=== PATIENT | female | born 1960 | race Two or more races ===

== ENCOUNTER 2017-07-19 13:38 | Inpatient (IN) | payer OTHER ==
[2017-07-19 13:43] VITALS: BMI 28.9
--- NOTE | 2017-07-19 15:07 | PDOC ---
History of Present Illness <Pedro Fariaa - Last Filed: 07/19/17 18:42> - General History Source: Patient Exam Limitations: Language Barrier - History of Present Illness Initial Comments: 07/19/17 15:03 56F with pmh of [place] 10 years ago presents with upper right quadrant pain , fever, and headach and pain with breathing since last night. Pain in worse with food. 1 episode of vomiting last night. Had similar episode last month that went away by itself. Patient denies diarrhea, dysuria, lower wquadrant pain, <OsmarMandeep - Last Filed: 07/19/17 19:57> - General Chief Complaint: Pain Stated Complaint: FEVER, ABD PAIN Past History <Megan Faria - Last Filed: 07/19/17 18:42> - Past Medical History COPD: No - Suicide/Smoking/Psychosocial Hx Smoking History: Never smoked Hx Alcohol Use: No Drug/Substance Use Hx: No <OsmarMandeep - Last Filed: 07/19/17 19:57> - Past Medical History Allergies/Adverse Reactions: Allergies Allergy/AdvReac Type Severity Reaction Status Date / Time No Known Allergies Allergy Verified 07/19/17 13:43 Review of Systems - Review of Systems Able to Perform ROS?: Yes Is the patient limited Syrian proficient: Yes Constitutional: Yes: Chills, Fever, Loss of Appetite, Weakness HEENTM: No: Symptoms Reported Respiratory: Yes: Shortness of Breath (due to pain) Cardiac (ROS): Yes: Palpitations ABD/GI: Yes: Symptoms Reported, Nausea, Vomiting. No: Abd. Pain w/ defecation, Blood Streaked Bowels, Constipated, Diarrhea : No: Symptoms Reported Musculoskeletal: No: Symptoms Reported <PrasadMandeep - Last Filed: 07/19/17 19:57> *Physical Exam - Vital Signs Last Vital Signs Temp Pulse Resp BP Pulse Ox 99.5 F 130 H 20 160/77 97 07/19/17 13:40 07/19/17 13:40 07/19/17 13:40 07/19/17 13:40 07/19/17 13:40 <Megan Faria - Last Filed: 07/19/17 18:42> - Vital Signs Last Vital Signs Temp Pulse Resp BP Pulse Ox 99.5 F 130 H 20 160/77 97 07/19/17 13:40 07/19/17 13:40 07/19/17 13:40 07/19/17 13:40 07/19/17 13:40 - Physical Exam General Appearance: Yes: Nourished, Appropriately Dressed, Moderate Distress HEENT: positive: EOMI, CARYL, Normal ENT Inspection Neck: negative: Tender Respiratory/Chest: positive: Lungs Clear, Normal Breath Sounds. negative: Chest Tender Cardiovascular: positive: Regular Rhythm Gastrointestinal/Abdominal: positive: Tenderness, Other (Positive Perez's sign) . negative: Tender Integumentary: positive: Warm, Diaphoresis Neurologic: positive: Fully Oriented, Alert, Normal Mood/Affect <Mandeep Prasad - Last Filed: 07/19/17 19:57> ED Treatment Course - LABORATORY CBC & Chemistry Diagram: 07/19/17 15:25 07/19/17 15:25 - ADDITIONAL ORDERS Additional order review: Laboratory Results 07/19/17 07/19/17 15:25 15:25 Sodium 138 Potassium 4.3 Chloride 102 Carbon Dioxide 30 Anion Gap 6 L BUN 12 Creatinine 0.8 Creat Clearance w eGFR > 60 Random Glucose 106 Calcium 10.5 H Total Bilirubin 1.8 H Direct Bilirubin 0.6 H AST 247 H ALT 243 H Alkaline Phosphatase 92 Total Protein 7.8 Albumin 3.8 Lipase 80 07/19/17 15:25 RBC 4.95 MCV 93.0 MCHC 34.0 RDW 13.5 MPV 8.8 Neutrophils % 84.2 H Lymphocytes % 7.5 L Monocytes % 7.7 Eosinophils % 0.1 Basophils % 0.5 - Medications Given in the ED: ED Medications Discontinued Medications Generic Name Dose Route Start Last Admin Trade Name Freq PRN Reason Stop Dose Admin Ketorolac Tromethamine 30 mg 07/19/17 15:08 07/19/17 15:37 Toradol Injection - IVPUSH 07/19/17 15:09 30 mg ONCE ONE Administration Ondansetron HCl 4 mg 07/19/17 15:56 07/19/17 16:53 Zofran Injection IVPUSH 07/19/17 15:57 4 mg ONCE ONE Administration Sodium Chloride 1,000 ml 07/19/17 15:17 07/19/17 16:53 Normal Saline - IV 07/19/17 15:18 1,000 ml ONCE ONE Administration <Megan Faria - Last Filed: 07/19/17 18:42> - LABORATORY CBC & Chemistry Diagram: 07/19/17 15:25 07/19/17 15:25 <Mandeep Prasad - Last Filed: 07/19/17 19:57> Medical Decision Making - Medical Decision Making 07/19/17 17:10 56F presenting with fever, RUQ pain. High suspicion for cholecystitis.cholelithiasis cbc/cmp/bili/Bedside ultrasound positive for Gallstones. Patient admitted for acute calculous cholecystitis. Evaluation by Dr. Parham and admission. 07/19/17 19:57 <Mandeep Prasad - Last Filed: 07/19/17 19:57> *DC/Admit/Observation/Transfer - Discharge Dispostion Admit: Yes <Megan Faria - Last Filed: 07/19/17 18:42> <Mandeep Prasad - Last Filed: 07/19/17 19:57> Diagnosis at time of Disposition: Cholecystitis - Referrals
[2017-07-19] MEDS ORDERED: KETOROLAC TROMETHAMINE 30 MG/1 ML VIAL IVPUSH ONE (15:08)
[2017-07-19] MEDS ORDERED: SODIUM CHLORIDE 0.9% 1000 ML INFUS.BAG IV ONE (15:17)
[2017-07-19] MEDS ORDERED: KETOROLAC TROMETHAMINE 30 MG/1 ML VIAL ONE (15:32)
[2017-07-19] MEDS ORDERED: ONDANSETRON 4 MG/2 ML VIAL IVPUSH ONE (15:56)
--- NOTE | 2017-07-19 15:56 | PDOC ---
Attending Attestation - Resident Resident Name: Mandeep Prasad - ED Attending Attestation I have performed the following: I have examined & evaluated the patient, The case was reviewed & discussed with the resident, I agree w/resident's findings & plan, Exceptions are as noted - HPI HPI: 07/19/17 15:51 56 yo F with ruq epigastric pain , n/v and subjective fevers. h/o gallstones. no mod factors. last meal was last pm. no cp no sob. no other complaints. no urinary complaints - Physicial Exam PE: 07/19/17 15:53 awake alert lungs clear bilat. heart rrr no mrg. abd soft ruq ttp, epigastric ttp. no rebound. pos murhpy's. ext wwp nt. skin warm and dry nuero alert oriented x 3. - Medical Decision Making 07/19/17 15:55 differential cholecystitis, gastritis, cholelithiaiss pancreatitis. plan us labs lipase pain control antiemetics. surgery consults. <Megan Faria - Last Filed: 07/19/17 15:51> - Medical Decision Making 07/19/17 18:02 Dr. Parham paged via phone answering service. Awaiting call back 07/19/17 18:[address] Parham in the ED Prasad aware of case before page <Radha Montero - Last Filed: 07/19/17 18:34>
[2017-07-19] MEDS ORDERED: SODIUM CHLORIDE 1,000 ML IV SCH (16:00)
[2017-07-19 16:30] LABS: BASOPHIL 0.5 % (0-2.0); EOSINOPHIL 0.1 % (0-4.5); MCH 31.6 pg (25.7-33.7); MEAN PLT VOLUME 8.8 fl (7.5-11.1); NEUTROPHILS 84.2 % (42.8-82.8); PLATELET COUNT 235 K/MM3 (134-434); RDW 13.5 % (11.6-15.6)
[2017-07-19] MEDS ORDERED: ONDANSETRON 4 MG/2 ML VIAL ONE (16:47)
[2017-07-19 16:55] LABS: ALBUMIN 3.8 g/dl (3.4-5.0); ALK PHOS 92 U/L (45-117); ANION GAP 6 (8-16); BILIRUBIN,DIRECT 0.6 mg/dL (0.0-0.2); BILIRUBIN,TOTAL 1.8 mg/dL (0.2-1.0); CALCIUM 10.5 mg/dL (8.5-10.1); CO2 30 mmol/L (21-32); CREATININE 0.8 mg/dL (0.55-1.02); GLUCOSE,RANDOM 106 mg/dL (74-106); SGPT/ALT 243 U/L (12-78); TOT PROT 7.8 g/dl (6.4-8.2)
[2017-07-19 17:11] LABS: SGOT/AST 247 U/L (15-37)
[2017-07-19] MEDS ORDERED: PIPERACIL/TAZOB 3.375 GM 3.375 GM/50 ML PREMIX IVPB ONE (17:59)
[2017-07-19] MEDS ORDERED: SODIUM CHLORIDE 1,000 ML IV STA (18:01)
[2017-07-19] MEDS ORDERED: PIPERACILLIN/TAZOB 4.5 GM/100 ML PRE-DOCKED IVPB ONE (18:40)
[2017-07-19] MEDS ORDERED: PIPERACILLIN/TAZOB 4.5 GM 100 ML IVPB ONE (18:53)
[2017-07-19 19:07] LABS: INR 1.13 (0.82-1.09); PROTHROMBIN TIME (PATIENT) 12.8 SEC (9.98-11.88)
[2017-07-19 19:10] LABS: ACTIVATED PTT 29.4 SECONDS (26.9-34.4)
[2017-07-19] MEDS ORDERED: morphine CARPU-JECT 2 MG/1 ML DISP.SYRIN IVPUSH PRN (20:45)
[2017-07-19] MEDS ORDERED: ONDANSETRON 4 MG/2 ML VIAL IVPUSH PRN (20:48)
--- NOTE | 2017-07-19 20:58 | HP ---
Admitting History and Physical - Admission Chief Complaint: RUQ pain, n/v, f/c History of Present Illness: 56yo Micheal F with HTN not requiring meds, h/o kidney stones, abdominoplasty and breast surgery, has been having intermittent RUQ pain after fatty meals for last two months. She thought it was acid problems, but it keeps coming back. This episode has been the worst so far, associated since yesterday with F/C, N/V , no change in bowel habits, last BM yesterday. She came to ER, where wbc is 12 , H/H 15/46 concentrated, LFTs slightly elevated but lipase normal; US showed gallstones with thickened gallbladder wall, no pericholecystic fluid, cbd 7-8mm , + Perez's. Pt states pain is better now after Toradol. She did have a reaction to Zosyn in ER with facial swelling and erythema, hives on arms, abd and legs. Got benadryl with improvement in itching and decrease in symptoms. Got 2L IVF in ER and started on maintenance. History Source: Patient, Family Member Limitations to Obtaining History: Language Barrier (Yemeni interpretation by daughters at bedside at pt's request) - Past Medical History Cardiovascular: Yes: HTN (not on meds) Gastrointestinal: Yes: GERD Hepatobiliary: Yes: Cholelithiasis Renal/: Yes: Renal Calculi ...: No Musculoskeletal: Yes: Chronic low back pain - Past Surgical History Past Surgical History: Yes: Upper Endoscopy (negative per pt, few months ago) Additional Past Surgical History: abdominoplasty, breast surgery, cystoscopy for kidney stones - Smoking History Smoking history: Former smoker (1ppd x 10 yrs) Have you smoked in the past 12 months: No If you are a former smoker, when did you quit?: 20 yrs ago - Alcohol/Substance Use Hx Alcohol Use: Yes (social) History of Substance Use: reports: None - Social History ADL: Independent Home Medications - Allergies Allergies/Adverse Reactions: Allergies Allergy/AdvReac Type Severity Reaction Status Date / Time piperacillin sodium Allergy Severe Hives Verified 07/19/17 21:01 [From Zosyn] tazobactam sodium Allergy Severe Hives Verified 07/19/17 21:01 [From Zosyn] - Home Medications Home Medications: Ambulatory Orders NK [No Known Home Medication] 07/19/17 Family Disease History - Family Disease History Family History: Unremarkable Review of Systems - Review of Systems Constitutional: reports: Chills, Fever Eyes: reports: Other (uses reading glasses). denies: Blurred Vision, Double Vision HENT: denies: Difficult Swallowing, Throat Pain Neck: denies: Swollen Glands, Tenderness Cardiovascular: denies: Chest Pain, Palpitations Respiratory: denies: Cough, SOB Gastrointestinal: reports: Abdominal Pain (with hpi), Indigestion (sometimes), Nausea (with hpi), Vomiting (with hpi). denies: Constipation, Diarrhea Genitourinary: denies: Burning, Dysuria Musculoskeletal: reports: Back Pain (since kidney stones). denies: Joint Pain Integumentary: denies: Change in Color, Rash Neurological: reports: Dizziness (with hpi), Headache (with hpi) Psychiatric: denies: Anxiety, Depression Physical Examination Vital Signs: Vital Signs Temperature 99 F 07/19/17 20:03 Pulse Rate 86 07/19/17 20:03 Respiratory Rate 18 07/19/17 20:03 Blood Pressure 131/69 07/19/17 20:03 O2 Sat by Pulse Oximetry (%) 97 07/19/17 20:03 Constitutional: Yes: Well Nourished, No Distress, Calm Eyes: Yes: Conjunctiva Clear, EOM Intact. No: Sclera Icterus HENT: Yes: Atraumatic, Normocephalic Neck: Yes: Supple, Trachea Midline Cardiovascular: Yes: Regular Rate and Rhythm, Murmur (soft systolic) Respiratory: Yes: Regular, CTA Bilaterally Gastrointestinal: Yes: Normal Bowel Sounds, Soft, Tenderness (mild LUQ, no r/g) , Other (well healed pfannenstiel/abdominoplasty scar and periumbilical scar). No: Distention, Tenderness, Epigastrium ...Rectal Exam: Yes: Deferred Renal/: No: CVA Tenderness - Left, CVA Tenderness - Right Musculoskeletal: No: Joint Stiffness, Joint Swelling Extremities: No: Cool, Cyanosis Edema: No Peripheral Pulses WNL: Yes Integumentary: Yes: Tattoos. No: Jaundice Neurological: Yes: Alert, Oriented Psychiatric: Yes: Alert, Oriented Labs: CBCD WBC 12.0 K/mm3 (4.0-10.0) H 07/19/17 15:25 RBC 4.95 M/mm3 (3.60-5.2) 07/19/17 15:25 Hgb 15.6 GM/dL (10.7-15.3) H 07/19/17 15:25 Hct 46.0 % (32.4-45.2) H 07/19/17 15:25 MCV 93.0 fl (80-96) 07/19/17 15:25 MCHC 34.0 g/dl (32.0-36.0) 07/19/17 15:25 RDW 13.5 % (11.6-15.6) 07/19/17 15:25 Plt Count 235 K/MM3 (134-434) 07/19/17 15:25 MPV 8.8 fl (7.5-11.1) 07/19/17 15:25 CMP Sodium 138 mmol/L (136-145) 07/19/17 15:25 Potassium 4.3 mmol/L (3.5-5.1) 07/19/17 15:25 Chloride 102 mmol/L (98-107) 07/19/17 15:25 Carbon Dioxide 30 mmol/L (21-32) 07/19/17 15:25 Anion Gap 6 (8-16) L 07/19/17 15:25 BUN 12 mg/dL (7-18) 07/19/17 15:25 Creatinine 0.8 mg/dL (0.55-1.02) 07/19/17 15:25 Creat Clearance w eGFR > 60 (>60) 07/19/17 15:25 Calcium 10.5 mg/dL (8.5-10.1) H 07/19/17 15:25 Total Bilirubin 1.8 mg/dL (0.2-1.0) H 07/19/17 15:25 AST 247 U/L (15-37) H 07/19/17 15:25 ALT 243 U/L (12-78) H 07/19/17 15:25 Alkaline Phosphatase 92 U/L (45-117) 07/19/17 15:25 Total Protein 7.8 g/dl (6.4-8.2) 07/19/17 15:25 Albumin 3.8 g/dl (3.4-5.0) 07/19/17 15:25 lipase 80 INR, PTT INR 1.13 (0.82-1.09) 07/19/17 18:45 Imaging - Results Ultrasound: Report Reviewed, Image Reviewed Problem List - Problems (1) Calculus of gallbladder with acute cholecystitis without obstruction Assessment/Plan: admit to surgery NPO/IVF until after surgery had acute reaction to zosyn with hives and facial swelling - aztreonam/flagyl per ID pain meds prn DVT prophylaxis Discussed with patient risks, benefits and alternatives of laparoscopic possible open cholecystectomy, including but not limited to bleeding, infection , injury to adjacent structures, bile leak or ductal injury, intraabdominal abscess or fluid collection, hernia, need for further procedures; alternatives include antibiotics, delayed or no surgery - risks of this include failure of nonoperative therapy, recurrence, cholangitis, pancreatitis, sepsis. Patient desires to proceed with operation - will plan for OR tomorrow if am labs are ok. Informed consent signed for same. Patient is expected to spend at least two midnights in the hospital. Code(s): K80.00 - CALCULUS OF GALLBLADDER W ACUTE CHOLECYST W/O OBSTRUCTION (2) Hypertension Assessment/Plan: no meds at home Code(s): I10 - ESSENTIAL (PRIMARY) HYPERTENSION Qualifiers: Hypertension type: essential hypertension Qualified Code(s): I10 - Essential (primary) hypertension; I10 - Essential (primary) hypertension; I10 - Essential (primary) hypertension (3) H/O renal calculi Code(s): Z87.442 - PERSONAL HISTORY OF URINARY CALCULI
[2017-07-19] MEDS: LACTATED RINGERS SOLUTION 1,000 ML IV SCH (21:32)
[2017-07-20] MEDS ORDERED: AZTREONAM 1 GM in DEXTROSE 5%-WATER - 50 ML IVPB SCH (02:00)
[2017-07-20] MEDS: METRONIDAZOLE 500 MG PREMIXED 100 ML IVPB SCH ×3 (02:30→18:47)
[2017-07-20] MEDS: AZTREONAM 1 GM IVPUSH SCH ×3 (02:31→18:53)
[2017-07-20 04:28] LABS: URINE APPEARANCE CLEAR; URINE BILIRUBIN NEGATIVE (NEGATIVE); URINE BLOOD 1+ (NEGATIVE); URINE COLOR YELLOW; URINE GLUCOSE (UA) NEGATIVE (NEGATIVE); URINE KETONE NEGATIVE (NEGATIVE); URINE NITRITE NEGATIVE (NEGATIVE); URINE PROTEIN NEGATIVE (NEGATIVE); URINE UROBILINOGEN 4.0 E.U/dl mg/dL (0.2-1.0)
[2017-07-20 04:37] LABS: URINE MUCUS RARE; URINE RBC 7 /hpf (0-3); URINE WBC 1 /hpf (3-5)
[2017-07-20] MEDS: LACTATED RINGERS SOLUTION 1,000 ML IV SCH ×2 (06:25→18:54)
[2017-07-20 08:26] LABS: BASOPHIL 0.5 % (0-2.0); EOSINOPHIL 2.3 % (0-4.5); MCH 31.2 pg (25.7-33.7); MCHC 33.5 g/dl (32.0-36.0); MEAN CELL VOLUME 93.1 fl (80-96); MEAN PLT VOLUME 8.1 fl (7.5-11.1); NEUTROPHILS 69.6 % (42.8-82.8); PLATELET COUNT 185 K/MM3 (134-434); RDW 13.2 % (11.6-15.6); WHITE BLOOD COUNT 5.5 K/mm3 (4.0-10.0)
[2017-07-20 09:11] LABS: GLUCOSE,RANDOM 87 mg/dL (74-106); SGOT/AST 153 U/L (15-37); SGPT/ALT 217 U/L (12-78)
[2017-07-20 09:14] LABS: ALK PHOS 77 U/L (45-117); ANION GAP 7 (8-16); BILIRUBIN,TOTAL 1.9 mg/dL (0.2-1.0); CALCIUM 9.2 mg/dL (8.5-10.1); CO2 27 mmol/L (21-32); CREATININE 0.7 mg/dL (0.55-1.02); TOT PROT 6.1 g/dl (6.4-8.2)
[2017-07-20 09:35] LABS: URINE LEUK ESTERASE Negative (NEGATIVE)
[2017-07-20] MEDS ORDERED: BUPIVACAINE HCL/PF 0.5% (5MG/ML) 10 ML VIAL ONE (13:07)
[2017-07-20] MEDS ORDERED: ROCURONIUM BROMIDE 50 MG/5 ML VIAL ONE (13:11)
[2017-07-20] MEDS ORDERED: MIDAZOLAM HCL 2 MG/2 ML SINGLE DOSE VIAL ONE (13:11)
[2017-07-20] MEDS ORDERED: DESFLURANE GAS 240 ML BOTTLE IH ONE (14:32)
[2017-07-20] MEDS ORDERED: BUPIVACAINE HCL/PF 0.5% (5MG/ML) 10 ML VIAL IJ ONE (14:46)
--- NOTE | 2017-07-20 15:31 | CON.ID ---
Consult Consult Specialty:: infectious disases Reason for Consultation:: cholecystitis - History of Present Illness Chief Complaint: abd pain History of Present Illness: 56yo Ukrainian F with HTN , h/o kidney stones, abdominoplasty and breast surgery , admitted for ruq pain which she has been having multiple times before patient was evaluated and found to have thickened gallbladder wall with multiple stones patient was seen by surgery team and the patient was taken to the or patient underwent cholecystectomy and post op patient is stable - History Source History Provided By: Patient, Medical Record Limitations to Obtaining History: Language Barrier - Past Medical History Cardio/Vascular: Yes: HTN (not on meds) Gastrointestinal: Yes: GERD Hepatobiliary: Yes: Cholelithiasis Renal/: Yes: Renal Calculi ...: No Musculoskeletal: Yes: Chronic low back pain - Past Surgical History Past Surgical History: Yes: Upper Endoscopy (negative per pt, few months ago) - Alcohol/Substance Use Hx Alcohol Use: Yes (social) History of Substance Use: reports: None - Smoking History Smoking history: Former smoker (1ppd x 10 yrs) Have you smoked in the past 12 months: No If you are a former smoker, when did you quit?: 20 yrs ago - Social History ADL: Independent Home Medications - Allergies Allergies/Adverse Reactions: Allergies Allergy/AdvReac Type Severity Reaction Status Date / Time piperacillin sodium Allergy Severe Hives Verified 07/19/17 21:01 [From Zosyn] tazobactam sodium Allergy Severe Hives Verified 07/19/17 21:01 [From Zosyn] - Home Medications Home Medications: Ambulatory Orders NK [No Known Home Medication] 07/19/17 Review of Systems - Review of Systems Constitutional: reports: No Symptoms Eyes: reports: No Symptoms HENT: reports: No Symptoms Neck: reports: No Symptoms Cardiovascular: reports: No Symptoms Respiratory: reports: No Symptoms Gastrointestinal: reports: Abdominal Pain (ruq) Musculoskeletal: reports: No Symptoms Integumentary: reports: No Symptoms Neurological: reports: No Symptoms Endocrine: reports: No Symptoms Hematology/Lymphatic: reports: No Symptoms Psychiatric: reports: No Symptoms Physical Exam Vital Signs: Vital Signs Temperature 98.3 F 07/20/17 09:00 Pulse Rate 76 07/20/17 09:00 Respiratory Rate 17 07/20/17 09:00 Blood Pressure 140/73 07/20/17 09:00 O2 Sat by Pulse Oximetry (%) 99 07/19/17 22:00 Constitutional: Yes: Well Nourished, Calm, Mild Distress Eyes: Yes: Conjunctiva Clear HENT: Yes: Atraumatic Neck: Yes: Supple Cardiovascular: Yes: Regular Rate and Rhythm Respiratory: Yes: Regular, CTA Bilaterally Gastrointestinal: Yes: Normal Bowel Sounds, Soft Musculoskeletal: Yes: WNL Extremities: Yes: WNL Neurological: Yes: Alert, Oriented Psychiatric: Yes: Alert, Oriented Labs: CBC, BMP 07/20/17 06:00 07/20/17 06:00 Imaging - Results Ultrasound: Report Reviewed, Image Reviewed Assessment/Plan Problem List - Problems (1) Calculus of gallbladder with acute cholecystitis without obstruction Code(s): K80.00 - CALCULUS OF GALLBLADDER W ACUTE CHOLECYST W/O OBSTRUCTION (2) Hypertension Code(s): I10 - ESSENTIAL (PRIMARY) HYPERTENSION Qualifiers: Hypertension type: essential hypertension Qualified Code(s): I10 - Essential (primary) hypertension; I10 - Essential (primary) hypertension; I10 - Essential (primary) hypertension (3) H/O renal calculi Code(s): Z87.442 - PERSONAL HISTORY OF URINARY CALCULI 4 rash patient had developed raction to zosyn after getting one dose plan will start patient on azactam and flagy continue monitoring
[2017-07-20] MEDS ORDERED: KETOROLAC TROMETHAMINE 30 MG/1 ML VIAL ONE (15:52)
[2017-07-20] MEDS ORDERED: DEXAMETHASONE SOD PHOSPHATE 4 MG/1 ML VIAL ONE (15:52)
[2017-07-20] MEDS ORDERED: NEOSTIGMINE METHYLSULFATE 0.5 MG/ML - 10 ML MDV ONE (15:52)
[2017-07-20] MEDS ORDERED: GLYCOPYRROLATE 0.2 MG/1 ML VIAL ONE (15:53)
--- NOTE | 2017-07-20 16:09 | OP ---
Operative Note - Note: Operative Date: 07/20/17 Pre-Operative Diagnosis: acute cholecystitis Operation: laparoscopic cholecystectomy Findings: edematous, inflamed gb with few overlying omental adhesions, critical view identified Post-Operative Diagnosis: Same as Pre-op Surgeon: Thomas Parham Conduit Mechanic: Scott Perry Anesthesiologist/AUTOCAD ELECTRICAL DESIGNER: Ruslan Duff ([facility]) Anesthesia: General, Local (10ml 0.5% marcaine) Specimens Removed: gallbladder to pathology Estimated Blood Loss (mls): 10 Fluid Volume Replaced (mls): 1,000 (crystalloid) Operative Report Dictated: Yes
[2017-07-20] MEDS ORDERED: HYDROmorphone HCL CARPU-JECT 1 MG/1 ML DISP.SYRIN IVPUSH PRN (16:15)
[2017-07-20] MEDS ORDERED: ACETAMINOPHEN 325 MG TABLET (FP) PO PRN ×2 (16:17→17:38)
[2017-07-20] MEDS ORDERED: IBUPROFEN 600 MG TABLET (FP) PO PRN ×2 (16:18→17:38)
[2017-07-20] MEDS ORDERED: oxyCODONE HCL 5 MG TABLET PO PRN ×2 (16:19→17:38)
[2017-07-20] MEDS ORDERED: morphine CARPU-JECT 4 MG/1 ML DISP.SYRIN IVPUSH PRN (16:22)
[2017-07-20] MEDS ORDERED: HYDROmorphone HCL CARPU-JECT 2 MG/1 ML DISP.SYRIN ONE (16:44)
--- NOTE | 2017-07-20 17:02 | EKG ---
Test Reason : Blood Pressure : / mmHG Vent. Rate : 083 BPM Atrial Rate : 083 BPM P-R Int : 152 ms QRS Dur : 086 ms QT Int : 360 ms P-R-T Axes : 060 021 022 degrees QTc Int : 423 ms NORMAL SINUS RHYTHM NORMAL ECG NO PREVIOUS ECGS AVAILABLE Confirmed by GERI PEREZ MD ([id number]) on 07/20/2017 5:01:57 PM Referred By: Confirmed By:GERI PEREZ MD
[2017-07-20] MEDS ORDERED: ONDANSETRON 4 MG/2 ML VIAL IVPUSH PRN (17:38)
[2017-07-20] MEDS ORDERED: morphine SULFATE 4 MG/ML VIAL IVPUSH PRN (17:38)
[2017-07-20] MEDS ORDERED: PT OWN MED DRAWER 7, Y5N ONE (18:41)
[2017-07-21] MEDS: AZTREONAM 1 GM IVPUSH SCH ×2 (02:43→10:03)
[2017-07-21] MEDS: METRONIDAZOLE 500 MG PREMIXED 100 ML IVPB SCH ×2 (02:43→10:03)
[2017-07-21] MEDS: LACTATED RINGERS SOLUTION 1,000 ML IV SCH (06:28)
--- NOTE | 2017-07-21 11:59 | PN ---
Progress Note, Physician History of Present Illness: doing well no complaints rash resolved - Current Medication List Current Medications: Active Medications Acetaminophen (Tylenol -) 650 mg PO Q6H PRN PRN Reason: FEVER OR PAIN Last Admin: 07/20/17 21:33 Dose: 650 mg Aztreonam (Azactam (Restricted To Id) -) 10 mls @ 120 mls/hr IVPUSH Q8H-IV JOON Last Admin: 07/21/17 10:03 Dose: 120 mls/hr Metronidazole (Flagyl 500mg Premixed Ivpb -) 100 mls @ 100 mls/hr IVPB Q8H-IV JOON Last Admin: 07/21/17 10:03 Dose: 100 mls/hr Lactated Ringer's (Lactated Ringers Solution) 1,000 mls @ 125 mls/hr IV ASDIR JOON Last Admin: 07/21/17 06:28 Dose: 125 mls/hr Ibuprofen (Motrin -) 600 mg PO Q6H PRN PRN Reason: PAIN Morphine Sulfate (Morphine Sulfate) 2 mg IVPUSH Q4H PRN PRN Reason: SEVERE PAIN Ondansetron HCl (Zofran Injection) 4 mg IVPUSH Q6H PRN PRN Reason: NAUSEA Oxycodone HCl (Roxicodone -) 5 mg PO Q4H PRN PRN Reason: PAIN Last Admin: 07/20/17 21:31 Dose: 5 mg - Objective Vital Signs: Vital Signs Temperature 98.5 F 07/21/17 10:00 Pulse Rate 89 07/21/17 10:00 Respiratory Rate 14 07/21/17 10:00 Blood Pressure 135/73 07/21/17 10:00 O2 Sat by Pulse Oximetry (%) 97 07/21/17 10:00 Constitutional: Yes: No Distress, Calm Cardiovascular: Yes: Regular Rate and Rhythm Respiratory: Yes: Regular, CTA Bilaterally Gastrointestinal: Yes: Normal Bowel Sounds, Soft, Tenderness (at the operated site) Musculoskeletal: Yes: WNL Extremities: Yes: WNL Wound/Incision: Yes: Dressing Dry and Intact Neurological: Yes: Alert, Oriented Psychiatric: Yes: Alert, Oriented Labs: CBC, BMP 07/20/17 06:00 07/20/17 06:00 INR, PTT INR 1.13 (0.82-1.09) 07/19/17 18:45 Assessment/Plan Problem List - Problems (1) Calculus of gallbladder with acute cholecystitis without obstruction Code(s): K80.00 - CALCULUS OF GALLBLADDER W ACUTE CHOLECYST W/O OBSTRUCTION (2) Hypertension Code(s): I10 - ESSENTIAL (PRIMARY) HYPERTENSION Qualifiers: Hypertension type: essential hypertension Qualified Code(s): I10 - Essential (primary) hypertension; I10 - Essential (primary) hypertension; I10 - Essential (primary) hypertension (3) H/O renal calculi Code(s): Z87.442 - PERSONAL HISTORY OF URINARY CALCULI 4 rash plan will start patient on azactam and flagyl continue monitoring when patient ready to discharge can stop all abx
--- NOTE | 2017-07-21 12:09 | PN ---
Progress Note (short form) - Note Progress Note: POD #1 - s/p laparoscopic cholecystectomy under general anesthesia. Pt. doing well, resting comfortably in bed. No complaints. No apparent anesthetic complications noted. Continue current care.
--- NOTE | 2017-07-21 13:22 | DS ---
Physical Examination Vital Signs: Vital Signs Temperature 98.5 F 07/21/17 10:00 Pulse Rate 89 07/21/17 10:00 Respiratory Rate 14 07/21/17 10:00 Blood Pressure 135/73 07/21/17 10:00 O2 Sat by Pulse Oximetry (%) 97 07/21/17 10:00 Constitutional: Yes: Well Nourished, No Distress, Calm Eyes: Yes: Conjunctiva Clear, EOM Intact HENT: Yes: Atraumatic, Normocephalic Cardiovascular: Yes: Regular Rate and Rhythm, Murmur Respiratory: Yes: Regular, CTA Bilaterally Gastrointestinal: Yes: Soft, Distention (mild), Hypoactive Bowel Sounds, Tenderness (RUQ mild, incisional, mostly at umbilicus, no R/G) Extremities: No: Cool, Cyanosis Edema: No Integumentary: Yes: Incision (x4, dressed), Tattoos. No: Jaundice, Rash (hives and facial edema/erythema all resolved) Wound/Incision: Yes: Steri Strips (under dressings), Dressing Dry and Intact (x4 ). No: Dressing Removed Neurological: Yes: Alert, Oriented Labs: Discharge Summary Reason For Visit: CHOLECYSTITIS Current Active Problems Calculus of gallbladder with acute cholecystitis without obstruction (Acute) H/O renal calculi (Acute) Hypertension (Acute) Procedures: Principal: laparoscopic cholecystectomy Hospital Course: 56yo [place] F with HTN not on meds, h/o kidney stones and abdominoplasty/ breast surgery presented with RUQ pain associated with fatty foods, this time with N/V and the worst it's been. In the ER, she had mild leukocytosis, US showing gallstones with thickened gallbladder wall and distended gallbladder, LFTs were mildly elevated but lipase was normal. She was started on fluids and antibiotics, had a reaction to Zosyn with hives and facial edema/redness which resolved with benadryl and time. She was switched to Aztreonam and Flagyl and admitted to surgery for acute cholecystitis. She was taken for uneventful laparoscopic cholecystectomy. Postop, she has ambulated, voided, tolerated diet , and pain is controlled with oral meds. She is d/c home to follow up in 2 weeks. Condition: Good - Instructions Diet, Activity, Other Instructions: Postoperative instructions: You had a laparoscopic cholecystectomy on 07/20/[address] Thomas Parham of [facility]. Activity: Resume your usual activities gradually, but no heavy exertion or lifting more than 10-15 pounds for 1 month. Remove dressings 48 hours after surgery; sticky tapes underneath will fall off by themselves. You may shower daily starting then, just pat the incision areas dry. No bath or swimming until skin is healed. Eat lightly at first, but advance to your usual diet as tolerated. Pain: For pain, you may use and alternate Tylenol (acetaminophen) and/or ibuprofen every 6 hours each as needed; this means that you can take one OR the other at 3-hour intervals. If you are prescribed a Tylenol/narcotic combination for severe pain, use it instead of plain Tylenol as needed and switch back when your pain starts decreasing. Do not take more than 4000mg of acetaminophen in a day. Take medications as prescribed or indicated on the labeling. Follow-up: Call Dr. Parham's office at [phone] to make your postop appointment (Monday ~2 weeks after surgery). Clinic is held in the [facility] on the first floor of [facility]. Call the office if you have: * increasing pain not responsive to pain medication * fever of 101F or higher * vomiting * unusual or increasing bleeding or drainage from wounds * increasing redness or swelling at wound sites * inability to urinate Also, see your primary medical doctor within 1-2 weeks. Referrals: STAFF,NOT ON [Primary Care Provider] - Disposition: HOME - Home Medications Comprehensive Discharge Medication List: Home Medications Medication Instructions Recorded Acetaminophen [Tylenol .Regular 650 mg PO Q6H PRN #0 tablet 07/21/17 Strength -] Ibuprofen [Motrin -] 600 mg PO Q6H PRN #0 tablet 07/21/17
[2017-07-21 15:31] VITALS: BP 145/74; PULSE 92; TEMP 98.2
--- NOTE | 2017-07-25 15:04 | PATH ---
Surgical Pathology Report Patient Name: RIGOBERTO THOMAS [facility]. Rec. #: [id number] /Age/Gender: 1960 (Age: 56) / F Account: [id number] Location: [address] [place] [address]/[facility] Taken: 07/20/2017 Received: 07/21/2017 Reported: 07/25/2017 Physicians: Thomas Parham M.D. Specimen(s) Received GALLBLADDER Clinical History Acute cholecystitis Final Diagnosis GALLBLADDER, CHOLECYSTECTOMY: ACUTE AND CHRONIC CHOLECYSTITIS. CHOLELITHIASIS. Electronically Signed Joselyn Rojo M.D. Gross Description Received in formalin, labeled "gallbladder," is a 9.3 x 2.4 x 2.4 cm. gallbladder with a 0.2 cm. in length portion of cystic duct attached. There is a 0.7 cm greatest dimension possible periductal lymph node present. The outer surface is jones hilton and varies from smooth to shaggy. The lumen contains green, tenacious bile as well as multiple green-black, irregular choleliths averaging 1.3 cm in greatest dimension. The mucosa is green and velvety. There is a focal thickening of the wall with submucosal cystic spaces in the fundus of the gallbladder. The wall of the gallbladder averages 0.2 cm. in thickness. Environmental Compliance Manager sections are submitted in 2 cassettes as follows: 1-cystic duct margin, possible lymph node and financial foundations representative mucosa; 2-fundus. [facility]
== END 2017-07-21 16:51 | disposition home or self-care (01) | DRG 263 ==
LOC: JER 13:38 → JERBED 18:43 → J5S 21:03
PROVIDERS: ADMIT Surgery; ATTEND Surgery
PROC: 0FT44ZZ Resection of Gallbladder, Percutaneous Endoscopic Approach (ICD-10-PCS; principal; 2017-07-20 15:00)
DX: K80.00 Calculus of gallbladder with acute cholecystitis without obstruction (principal); I10 Essential (primary) hypertension; K21.9 Gastro-esophageal reflux disease without esophagitis; M54.5 Low back pain; L27.0 Generalized skin eruption due to drugs and medicaments taken internally; T36.0X5A Adverse effect of penicillins, initial encounter; Y92.238 Other place in hospital as the place of occurrence of the external cause; Z87.891 Personal history of nicotine dependence; Z87.442 Personal history of urinary calculi
CPT/HCPCS: 36415; 76705-TC; 80053; 81003; 81015; 82248; 83690; 84703; 85025; 85610; 85730; 86850; 86900; 86901; 88304-TC; 93005; 93010; 94760; 99283-25

== ENCOUNTER 2019-07-17 11:26 | Emergency (ER) | payer OTHER ==
[2019-07-17 11:35] VITALS: BMI 26.9
--- NOTE | 2019-07-17 12:42 | PDOC ---
Documentation entered by Luis Carlos Galindo SCRIBE, acting as scribe for Andrew Paiz MD. Andrew Paiz MD: This documentation has been prepared by the Josie gomez Xhesika, SCRIBE, under my direction and personally reviewed by me in its entirety. I confirm that the documentation accurately reflects all work, treatment, procedures, and medical decision making performed by me. History of Present Illness - General Chief Complaint: Chest Pain Stated Complaint: CHEST PAIN Time Seen by Provider: 07/17/19 11:55 History Source: Patient Exam Limitations: No Limitations - History of Present Illness Initial Comments: 07/17/19 12:31 The patient is a 58 year old female with no significant PMH of who presents to the emergency department with intermittent chest pressure. Patient notes the chest pressure is transient, lasting 5 minutes at a time, and makes her want to cough. Pt states that she gets several episodes a day, estimates 10 per day. Denies any SOB. Pt currently denies chest pain or any other symptoms. Denies fever, chills, nausea, vomiting, diarrhea and constipation. Allergies: piperacillin sodium, tazobactam sodium Past surgical history: abdominoplasty Past History - Past Medical History Allergies/Adverse Reactions: Allergies Allergy/AdvReac Type Severity Reaction Status Date / Time piperacillin sodium Allergy Severe Hives Verified 07/28/17 10:21 [From Zosyn] tazobactam sodium Allergy Severe Hives Verified 07/28/17 10:21 [From Zosyn] Anemia: No Asthma: No Cancer: No Cardiac Disorders: No COPD: No Dementia: No Diabetes: No Disorders: No Liver Disease: No Seizures: No - Surgical History Abdominal Surgery: Yes ([facility]ANTON) Cardiac Surgery: No Lung Surgery: No Neurologic Surgery: No Orthopedic Surgery: No - Immunization History Immunization Up to Date: Yes - Psycho Social/Smoking Cessation Hx Smoking History: Never smoked Have you smoked in the past 12 months: No If you are a former smoker, when did you quit?: 20yrs Information on smoking cessation initiated: No Hx Alcohol Use: No Drug/Substance Use Hx: No Substance Use Type: None Hx Substance Use Treatment: No Review of Systems - Review of Systems Able to Perform ROS?: Yes Comments:: 07/17/19 12:32 GENERAL/CONSTITUTIONAL: No fever or chills. No weakness. HEAD, EYES, EARS, NOSE AND THROAT: No change in vision. No ear pain or discharge. No sore throat. CARDIOVASCULAR: + intermittent chest pressure. No chest pain, no shortness of breath, no loss of consciousness RESPIRATORY: No cough, wheezing, or hemoptysis. GASTROINTESTINAL: No nausea, vomiting, diarrhea or constipation. GENITOURINARY: No dysuria, frequency, or change in urination. MUSCULOSKELETAL: No joint or muscle swelling or pain. No neck or back pain. SKIN: No rash NEUROLOGIC: No vertigo, no change in strength/sensation. ENDOCRINE: No increased thirst. No abnormal weight change. HEMATOLOGIC/LYMPHATIC: No anemia, easy bleeding, or history of blood clots. ALLERGIC/IMMUNOLOGIC: No hives or skin allergy. *Physical Exam - Vital Signs Last Vital Signs Temp Pulse Resp BP Pulse Ox 98.6 F 84 19 126/105 H 98 07/17/19 11:30 07/17/19 11:30 07/17/19 11:30 07/17/19 11:30 07/17/19 11:30 - Physical Exam Comments: 07/17/19 12:33 GENERAL: Awake, alert, and fully oriented, in no acute distress. HEAD: No signs of trauma EYES: PERRLA, EOMI, sclera anicteric, conjunctiva clear ENT: Auricles normal inspection, hearing grossly normal, nares patent, oropharynx clear without exudates. Moist mucosa NECK: Nontender, no stepoffs, Normal ROM, supple, no lymphadenopathy, JVD, or masses LUNGS: Breath sounds equal, clear to auscultation bilaterally. No wheezes, and no crackles HEART: Regular rate and rhythm, normal S1 and S2, no murmurs, rubs or gallops ABDOMEN: Soft, nontender, normoactive bowel sounds. No guarding, no rebound. No masses EXTREMITIES: Normal range of motion, no edema. No clubbing or cyanosis. No cords, erythema, or tenderness NEUROLOGICAL: Cranial nerves II through XII intact. 5/5 strength and sensation in all extremities, Normal speech, normal gait, normal cerebellar function SKIN: Warm, Dry, normal turgor, no rashes or lesions noted. Heart Score/ECG Review - History History: Slightly suspicious - Electrocardiogram EKG: Normal - Age Age: 45-65 - Risk Factors Based on the list above the patient has:: No risk factors known - Troponin Troponin: </= normal limit - Score Heart Score - Total: 1 - ECG Impressions Comment:: 07/17/19 14:55 NSR, no YVETTE/STDs, no TWIs, axis wnl, intervals wnl, rate 76 ED Treatment Course - LABORATORY CBC & Chemistry Diagram: 07/17/19 12:44 07/17/19 12:44 Medical Decision Making - Medical Decision Making 07/17/19 13:00 58 F with atypical chest pressure x 2 months associated with cough. Will r/o infectious process such as PNA. Will also check EKG and cardiac enzymes to r/o acute cardiac process. Pt with normal exam, normal vitals, currently asymptomatic. No clinical signs of DVT, no risk factors for PE. - Labs, trop - CXR 07/17/19 14:51 Labs wnl CXR clear Pt reassessed - continues to be asymptomatic. Pt is well appearing, with normal vitals. Clinically stable for DC at this time. I discussed the physical exam findings, ancillary test results and final diagnoses with the patient. I answered all of the patient's questions. The patient was satisfied with the care received and felt comfortable with the discharge plan and treatment plan. The patient agrees to follow up with the primary care physician within 24-72 hours. Discharge - Discharge Information Problems reviewed: Yes Clinical Impression/Diagnosis: Cough, Chest pressure, Anxiety Condition: Improved Disposition: HOME - Follow up/Referral Referrals: Hans Morgan MD [Staff Physician] - - Patient Discharge Instructions Patient Printed Discharge Instructions: DI for Atypical Chest Pain Additional Instructions: Your bloodwork, EKG, and X ray today were normal. However, this does not rule out all heart disease. Please follow up with your primary doctor, as well as a [facility], within 1 week. Call the number provided to make an appointment with our [facility]. If you experience any chest pain, shortness of breath, or any other concerning symptoms, return to the ER immediately. - Post Discharge Activity
[2019-07-17 12:53] LABS: BASO % 0.4 % (0-2.0); EOS % 1.4 % (0-4.5); HEMATOCRIT 44.5 % (32.4-45.2); HEMOGLOBIN 15.1 GM/dL (10.7-15.3); LYMPH % 34.4 % (8-40); MCH 32.4 pg (25.7-33.7); MEAN CELL VOLUME 95.2 fl (80-96); MEAN PLT VOLUME 7.9 fl (7.5-11.1); MONO % 8.7 % (3.8-10.2); NEUT % 55.1 % (42.8-82.8); PLATELET COUNT 238 K/MM3 (134-434); RBC 4.67 M/mm3 (3.60-5.2); RDW 13.3 % (11.6-15.6); WHITE BLOOD COUNT 4.9 K/mm3 (4.0-10.0)
[2019-07-17 13:26] LABS: BILIRUBIN,TOTAL 0.5 mg/dL (0.2-1); BLOOD UREA NITROGEN 15.8 mg/dL (7-18); CALCIUM 10.4 mg/dL (8.5-10.1); CREATININE 0.7 mg/dL (0.55-1.3); POTASSIUM 4.8 mmol/L (3.5-5.1); TOT PROT 7.6 g/dl (6.4-8.2)
[2019-07-17 14:24] VITALS: BP 143/75; PULSE 79; TEMP 98.3
--- NOTE | 2019-07-17 15:05 | EKG ---
Test Reason : Blood Pressure : / mmHG Vent. Rate : 076 BPM Atrial Rate : 076 BPM P-R Int : 158 ms QRS Dur : 086 ms QT Int : 372 ms P-R-T Axes : 051 019 033 degrees QTc Int : 418 ms NORMAL SINUS RHYTHM NORMAL ECG WHEN COMPARED WITH ECG OF 20-JUL-2017 11:25, NO SIGNIFICANT CHANGE WAS FOUND Confirmed by PELON DEE MD ([id number]) on 07/17/2019 3:04:54 PM Referred By: Confirmed By:PELON DEE MD
== END 2019-07-17 14:58 | disposition home or self-care (01) ==
LOC: JER 11:26
DX: R07.89 Other chest pain (principal); R05 Cough; F41.9 Anxiety disorder, unspecified; Z88.8 Allergy status to other drugs, medicaments and biological substances; Z87.891 Personal history of nicotine dependence
CPT/HCPCS: 36415; 71046-TC-FY; 80053; 82550; 83880; 84484; 85025; 93005; 93010; 99285-25

== ENCOUNTER 2020-08-04 06:56 | Emergency (ER) | payer OTHER ==
[2020-08-04 07:18] VITALS: BP 141/79; PULSE 83; TEMP 98.8; BMI 26.6
[2020-08-04] MEDS ORDERED: SODIUM CHLORIDE 1,000 ML IV STA (07:30)
[2020-08-04] MEDS ORDERED: ACETAMINOPHEN 1000 MG/100 ML VIAL (NON FORMULARY) IVPB ONE (07:30)
[2020-08-04] MEDS ORDERED: ACETAMINOPHEN INJECTION 100 ML IVPB ONE (07:36)
[2020-08-04 08:30] LABS: BASO % 0.4 % (0-2.0); EOS % 0.7 % (0-4.5); HEMATOCRIT 44.2 % (32.4-45.2); LYMPH % 13.4 % (8-40); MCH 31.6 pg (25.7-33.7); MEAN PLT VOLUME 8.6 fl (7.5-11.1); MONO % 6.1 % (3.8-10.2); NEUT % 79.4 % (42.8-82.8); PLATELET COUNT 209 K/MM3 (134-434); RBC 4.75 M/mm3 (3.60-5.2); RDW 13.4 % (11.6-15.6); WHITE BLOOD COUNT 9.5 K/mm3 (4.0-10.0)
[2020-08-04 08:36] LABS: EPI CELLS >36 /uL (0-25.1); HCG,QUALITATIVE URINE Negative; HYALINE CASTS 2 /uL (0-3.1); PH,URINE 7.5 (5.0-8.0); URINE APPEARANCE CLOUDY; URINE BACTERIA 2156 /uL (0-1359); URINE BILIRUBIN NEGATIVE (NEGATIVE); URINE COLOR YELLOW; URINE GLUCOSE (UA) NEGATIVE (NEGATIVE); URINE KETONE TRACE (NEGATIVE); URINE LEUK ESTERASE NEGATIVE (NEGATIVE); URINE NITRITE NEGATIVE (NEGATIVE); URINE PROTEIN NEGATIVE (NEGATIVE); URINE RBC 2276 /uL (0-23.9); URINE UROBILINOGEN 0.2 mg/dL (0.2-1.0); URINE WBC 24 /uL (0-25.8)
[2020-08-04 09:13] LABS: POTASSIUM 5.1 mmol/L (3.5-5.1)
[2020-08-04 09:16] LABS: ALBUMIN 4.1 g/dl (3.4-5.0); BLOOD UREA NITROGEN 18.6 mg/dL (7-18); CALCIUM 10.1 mg/dL (8.5-10.1)
[2020-08-04 09:20] LABS: CREATININE 0.7 mg/dL (0.55-1.3)
[2020-08-04 09:21] LABS: BILIRUBIN,TOTAL 1.1 mg/dL (0.2-1); TOT PROT 7.5 g/dl (6.4-8.2)
== END 2020-08-04 10:00 | disposition home or self-care (01) ==
LOC: JER 06:56
PROC: 3E0333Z Introduction of Anti-inflammatory into Peripheral Vein, Percutaneous Approach (ICD-10-PCS; principal; 2020-08-04)
PROC: 3E0337Z Introduction of Electrolytic and Water Balance Substance into Peripheral Vein, Percutaneous Approach (ICD-10-PCS; 2020-08-04)
DX: N20.0 Calculus of kidney (principal); N30.01 Acute cystitis with hematuria
CPT/HCPCS: 36415; 74176-TC; 80053; 81003; 83690; 84703; 85025; 87086; 87186; 99284-25; J0131